=== PATIENT | female | born 1990 | race Caucasian/White ===

== ENCOUNTER 2021-01-29 13:52 | Outpatient (CLI) | payer MEDICAID, SELFPAY ==
[2021-01-29 14:09] VITALS: BMI 25.2
[2021-01-29 14:15] VITALS: RESP 18; TEMP 36.5
[2021-01-29 14:27] VITALS: BP 136/69; PULSE 63
[2021-01-29 14:58] VITALS: BP 126/75; PULSE 70
[2021-01-29 15:12] LABS: Urine Appearance Clear (CLEAR); Urine Color Straw (Yellow); pH Urine 7 (5-7)
[2021-01-29 15:13] LABS: Bilirubin Urine Neg (Negative); Blood Urine Neg (Negative); Glucose Urine UA Norm (Normal); Ketones Urine Negative (Negative); Leukocyte Esterase Urine Negative (Negative); Nitrate Urine Negative (Negative); Protein Urine Neg (Negative); Urobilinogen Urine Norm (Negative)
[2021-01-29 15:21] LABS: Amphetamines Screen Urine Negative (Negative); Barbiturates Screen Urine Negative (Negative); Benzodiazepines Screen Urine Positive (Negative); Cocaine Screen Urine Negative (Negative); Opiate Screen Urine Negative (Negative); PCP Screen Urine Negative (Negative); THC Screen Urine Positive (Negative)
[2021-01-29 15:27] VITALS: BP 127/74; PULSE 54
[2021-01-29 15:27] LABS: Add Urine Culture? No; Bacteria Urine 1+ /hpf; Squamous Epithelial Cell Urine 0-4 /hpf (0-5); WBC Urine 0-4 /hpf (0-5)
[2021-01-29 15:59] VITALS: BP 127/74; PULSE 54; RESP 18; TEMP 36.6
== END 2021-01-29 15:55 | disposition home or self-care (01) ==
LOC: OPOB 14:01 → OBGYN 14:02
PROVIDERS: Visit Provider Family Medicine
DX: O26.899 Other specified pregnancy related conditions, unspecified trimester (principal); Z3A.00 Weeks of gestation of pregnancy not specified; R10.9 Unspecified abdominal pain
CPT/HCPCS: 59025; 80306; 81001; 99211

== ENCOUNTER 2021-02-06 00:20 | Inpatient (IN) | payer MEDICAID, SELFPAY ==
[2021-02-05] VITALS (7 sets, daily range): BP systolic 123–158; BP diastolic 68–88; PULSE 60–80; TEMP 36.6–37; BMI 25.9
--- NOTE | 2021-02-05 20:18 | PC.NURSE ---
Spoke with patient, she verbally stated that we could provide her mother with information about her care
--- NOTE | 2021-02-05 22:32 | PM.OPHPUD ---
Labor & Delivery H&P Update Date of Procedure: February 05, 2021 Date H&P Performed: 02/01/21 H&P update information: I have reviewed H&P completed within last 30 days, I have examined patient prior to procedure and Changes to prior documentation as noted here (Patient not having much pain but is bryon regularly and making cervical change.) Changes to previous documentation: Cervix is approximately 6 cm dilated. Admission Diagnosis: Preop diagnosis: Term in spontaneous labor. Planned procedure: Plan spontaneous vaginal delivery.
[2021-02-05] MEDS: hyDROXYzine 25 mg Capsule 50 MG PO (23:00)
[2021-02-05 23:19] LABS: Basophils % 0.2 %; Eosinophils # 0.1 10^3/uL (0.0-0.8); Eosinophils % 0.8 %; Hematocrit 34.2 % (37.0-47.0); Hemoglobin 10.6 g/dL (11.5-15.3); Lymphocytes # 2.4 10^3/uL (0.8-4.8); Lymphocytes % 27.4 %; Mean Corpuscular Hemoglobin 26.1 pg (28.0-34.0); Mean Corpuscular Volume 84.2 fL (81-99); Mean Platelet Volume 11.1 fL (7.4-10.4); Monocytes # 0.7 10^3/uL (0.2-0.9); Monocytes % 7.9 %; Neutrophils # 5.51 10^3/uL (1.8-7.7); Neutrophils % 63.1 %; Nucleated Red Blood Cells % 0 %; Platelet Count 228 10^3/cmm (130-400); Red Blood Count 4.06 10^6/uL (4.1-5.3); Red Cell Distribution Width 14.8 % (12.1-15.1); White Blood Count 8.7 10^3/uL (4.0-10.0)
[2021-02-05 23:26] LABS: Amphetamines Screen Urine Negative (Negative); Barbiturates Screen Urine Negative (Negative); Benzodiazepines Screen Urine Positive (Negative); Cocaine Screen Urine Negative (Negative); Opiate Screen Urine Negative (Negative); PCP Screen Urine Negative (Negative); THC Screen Urine Negative (Negative)
[2021-02-06] VITALS (42 sets, daily range): BP systolic 109–161; BP diastolic 54–96; PULSE 56–81; RESP 16; TEMP 35.8–37
[2021-02-06] MEDS: dextrose 5%-lactated ringers 1,000 ML 125 ML IV (01:40)
[2021-02-06] MEDS: oxytocin 30 UNIT/500 ML BAG 600 UNIT IV (03:19)
--- NOTE | 2021-02-06 03:37 | PM.DELIVERY ---
Delivery Note: Date of delivery: February 06, 2021 this 30-year-old 2 now para 2 female at 39 weeks and 6 days gestation arrived to [facility] OB department suspecting that she may have had ruptured membranes. She was evaluated and found that she was not leaking amniotic fluid but she was 4 cm dilated and bryon regularly. At that time, she was feeling no pain but she was evaluated for another hour or so and was making cervical change and therefore was admitted to the hospital. She continued to make cervical change to complete cervical dilatation. She did have spontaneous rupture membranes with clear fluid obtained around 1 AM. She dilated to complete cervical dilatation with no anesthesia and was a very good pressure and delivered the infant around oh 3:13 AM at 40 weeks gestation. The infant was occiput posterior at delivery. There was no nuchal cord. She delivered the baby rapidly with suction of the from mouth and nose immediately after delivery using a bulb syringe. The infant cried lustily at and was placed on mother's abdomen. After approximately 1 minute the umbilical cord was cut by the infant's grandmother. The umbilical cord had 3 blood vessels. The placenta delivered spontaneously at 03 19. Evaluation of the vaginal vault and perineum demonstrated no lacerations and required no sutures. Fundal massage and sweep of the vaginal vault removed some small clots but otherwise there is good hemostasis. The had Apgars of 9 and 9 at 1 and 5 minutes respectively and weighed 6 pounds 11 ounces. Estimated blood loss is approximately 128 mL. There were no complications. Pre-Delivery Course: This patient was followed by this physician throughout her course. There were no major problems or concerns throughout her . Her maternal blood type was A+ with antibody screen negative. Hepatitis B, hepatitis C, RPR and HIV were negative. Rubella is nonimmune and group B strep was negative. This patient was treated with alprazolam off and on throughout her from her primary care physician. A discussion was made with the patient regarding her need to greatly limit the amount of alprazolam but she has severe anxiety disorder and required the alprazolam. The will need to be observed for any withdrawal side effects. Delivery: Spontaneous vaginal delivery. Post-Delivery Status: Patient is doing well will be followed for routine care. She is bottlefeeding therefore I will allow her to have an occasional alprazolam if necessary. A&P Assessment and plan (1) Normal spontaneous vaginal delivery: Patient did well through the labor and delivery process. We will plan routine care. Status: Acute (2) Anxiety: Alprazolam as needed for anxiety but will make sure she limits them. Status: Acute Coding Level of Care Code Acute Certified Orthotist Practice Manager for [facility] Fwd Diagnoses Normal spontaneous vaginal delivery O80 Anxiety F41.9
[2021-02-06] MEDS: ketorolac 30 mg/mL INJ IVP (03:51)
--- NOTE | 2021-02-06 05:21 | PC.NURSE ---
Patient mother as support person.
--- NOTE | 2021-02-06 05:50 | PC.NURSE ---
EDUCATION Nurse to room for recovery vital signs/fundus assessment. Observed patient asleep with infant in arms. Educated on safety and importance of infant in open crib while mother is sleeping. Patient verbalized understanding. to open crib before nurse left room.
[2021-02-06] MEDS: ibuprofen 800 mg tablet PO ×2 (09:34→14:54)
[2021-02-06] MEDS: prenatal vitamin Capsule 1 CAP PO (09:34)
[2021-02-06] MEDS: docusate sodium 100 mg Capsule PO ×2 (09:34→17:40)
[2021-02-06] MEDS: ALPRAZolam 0.5 mg Tablet 0.25 MG PO (09:42)
[2021-02-06 16:01] LABS: Hematocrit 32.4 % (37.0-47.0); Hemoglobin 10.2 g/dL (11.5-15.3); Mean Corpuscular HGB Conc 31.5 g/dL (30.0-36.0); Mean Corpuscular Hemoglobin 25.9 pg (28.0-34.0); Mean Corpuscular Volume 82.2 fL (81-99); Mean Platelet Volume 11.4 fL (7.4-10.4); Platelet Count 209 10^3/cmm (130-400); Red Blood Count 3.94 10^6/uL (4.1-5.3); Red Cell Distribution Width 14.8 % (12.1-15.1); White Blood Count 10.8 10^3/uL (4.0-10.0)
[2021-02-07 05:34] VITALS: BP 123/55; PULSE 58
--- NOTE | 2021-02-07 08:35 | PM.PN ---
Subjective Subjective: Interval history: Patient is extremely anxious and has begun breast-feeding the infant to help reduce withdrawal side effects. She is worried that baby is not getting enough to eat as baby is spitting a lot of stuff up. She is afebrile and has minimal lochia and no significant clots. Vitals/I&O/Wt Last Vital Signs Temp 98.6 F 02/06/21 15:59 Pulse 58 L 02/07/21 05:34 Resp 16 02/06/21 15:59 BP 123/55 02/07/21 05:34 Weight last 48 hrs Weight 82.1 kg Physical Exam Const: COMMON NORMALS: no acute distress, no limitations, healthy appearing and well nourished GENERAL APPEARANCE: anxious Resp: COMMON NORMALS: normal respiratory effort, No retractions, No use of accessory muscles and clear to auscultation bilaterally AUSCULTATION: clear to auscultation bilaterally Cardio: COMMON NORMALS: regular rate, regular rhythm and No murmurs present (Cardio) RATE: regular rate RHYTHM: regular rhythm GI: COMMON NORMALS: Normal to inspection, nondistended, normoactive bowel sounds present, Soft to palpation and non-tender (Fundus is firm and well below the umbilicus. ) INSPECTION: Yes normal to inspection PALPATION: Yes Soft to palpation Extremity: COMMON NORMALS: no calf tenderness and no pedal edema Neuro: COMMON NORMALS: no focal motor deficits and no sensory deficits noted Psych: ATTITUDE: Yes Guarded attititude/behavior present MOOD & AFFECT: Yes anxious Data : 02/06/21 15:30 A&P Assessment and plan (1) Normal spontaneous vaginal delivery: Patient is doing well from. She has had mild lochia and is tolerating a regular diet. Status: Acute (2) Anxiety: Due to the patient's severe anxiety and infants symptoms of abstinence I feel it would be best for the patient to remain in the hospital 1 more midnight to monitor the patient and her child's interactions. I suspect probably both will be able to be discharged in the morning. Status: Acute Attestations Medical Necessity Statement*: Due to patient's anxiety and it the patient should remain more more midnight in the hospital for breast-feeding and monitoring. Time Spent in Patient Care: 16 - 35 minutes (>than 50% of time spent in counselling and/or direct pt care on unit). Coding Level of Care Code Acute Pharmaceutical Process Engineer for Chg Fwd Diagnoses Normal spontaneous vaginal delivery O80 Anxiety F41.9
[2021-02-07] MEDS: lanolin oint 7 gm 1 APPLIC TOPICAL (09:05)
[2021-02-07] MEDS: prenatal vitamin Capsule 1 CAP PO (09:05)
[2021-02-07] MEDS: docusate sodium 100 mg Capsule PO (09:05)
[2021-02-07] MEDS: benzocaine-menthol 78 gm Canister 1 SPRAY TOPICAL (09:05)
[2021-02-07] MEDS: ibuprofen 800 mg tablet PO ×2 (09:05→14:17)
--- NOTE | 2021-02-07 09:23 | PC.NURSE ---
This nurse entered pt's room and found pt sitting up in chair holding . Pt's mother was in the bathroom at this time. This nurse explained the pt's morning medications to the pt and what they were for. Pt verbalized understanding. Pt's mother came out of the bathroom and began asking this nurse what medications were being given to the pt and what they were for and began writing down what this nurse was saying in a notebook that is at pt's bedside. This nurse repeated what medications the pt was getting and what they were for. After administration of the medications, the pt's mother asked this nurse if the pt was prescribed any Xanax here in the hospital and this nurse stated yes she could receive it 3 times per day. The mother stated to this nurse that it was part of the baby's treatment plan and she needed to make sure the pt would get the medication. This nurse explained the medication is given on an as needed basis not on a schedule. The mother of the pt also stated to this nurse about this being the first time the pt had held the baby and breastfed a baby before and she was worried. This nurse stated to mother of pt about nursing staff being available at all points during pt's stay for assistance with and anything else the pt may need. The pt's mother than began giving the pt many different things including her water, coffee, phone, and other small things while the pt was holding the baby. The pt stated to the mother she could put the things on the bedside table. The mother seemed extremely anxious and busy during this encounter. The mother stated she would be back this evening.
[2021-02-07 11:32] VITALS: TEMP 36.3
[2021-02-07 11:34] VITALS: BP 133/62; PULSE 62
--- NOTE | 2021-02-07 12:25 | PC.NURSE ---
pt pushed call light and stated I want to leave, I can't do it here, I want to be discharged, I will bring my baby back if he has a seizer. I am not even breast-feeding him. I can do this at home. This nurse notified the pt nurse to come to pt room at this time.
--- NOTE | 2021-02-07 13:00 | PC.NURSE ---
This nurse and Rahul Winn RN entered pt's room and this nurse stated to pt that Dr. Holman stated mother could be discharged but baby would have to stay a patient. Mother became very tearful and stated she did not understand. This nurse stated to pt that she could be discharged but room in with the baby but baby had to stay a patient so he could be monitored for signs of withdraw. The mother stated she wanted to be discharged and didn't understand what would be different in her going home and her being here. This nurse stated the baby could be monitored more closely and if baby was to be discharged and was to have a seizure at home, the baby could have negative consequences before they could arrive to the hospital. The mother was still very tearful and said she felt like she was doing everything wrong and she stated the baby wouldn't be going through this if it wasn't for her. This nurse reassured the mother that she was doing fine and it was her choice to breast or bottle feed the baby and she is more than welcome to room in with the baby but she cannot leave the hospital and stay gone because DFS would have to be notified. The mother again became tearful and this nurse reassured pt that if she stayed with the baby DFS would not have to be called. Rahul Winn RN stated to pt that the baby would have to stay until the half life of the medication she was taking would pass through the baby's system. The pt verbalized understanding.
--- NOTE | 2021-02-07 13:06 | PM.OBGYDC ---
Discharge Providers ROTARY ENVELOPE MACHINE OPERATOR Date of Admission: 02/06/21 00:20 Date of Discharge: 02/07/21 Attending Provider at Admission: Emmanuel Holman MD Attending Provider at Discharge: Emmanuel Holman MD Diagnoses at Discharge Discharge Diagnosis (1) Normal spontaneous vaginal delivery: Status: Acute (2) Anxiety: Status: Acute Reason for Visit Reason for Visit: possible ROM Hospital Course Hospital Course Patient has done well physically since delivery. She has mild lochia and minimal clots. She is ambulating well and tolerating a regular diet. Due to her severe anxiety she desires to be discharged to be able to take her own alprazolam instead of relying on the nurses to retrieve it. She plans to continue to room in with the and take part in the care as the infant continues to require close observation due to abstinence symptoms. Information Peripartum Data: Infant Delivery Method: Vaginal Physical Exam Const: COMMON NORMALS: no acute distress GENERAL APPEARANCE: cooperative, comfortable and anxious Resp: COMMON NORMALS: normal respiratory effort, No use of accessory muscles and clear to auscultation bilaterally AUSCULTATION: clear to auscultation bilaterally Cardio: COMMON NORMALS: regular rate, regular rhythm and No murmurs present (Cardio) RATE: regular rate RHYTHM: regular rhythm Extremity: COMMON NORMALS: no calf tenderness and no pedal edema Neuro: COMMON NORMALS: no focal motor deficits and no sensory deficits noted Psych: COMMON NORMALS: mental status grossly normal and cooperative MOOD & AFFECT: Yes anxious Skin: COMMON NORMALS: no rashes or lesions noted GENERAL SKIN EXAM: no rashes or lesions noted Discharge Data Data Completed and Pending: Labs from last 24 hours 02/06/21 15:30 WBC 10.8 H RBC 3.94 L Hgb 10.2 L Hct 32.4 L MCV 82.2 MCH 25.9 L MCHC 31.5 RDW 14.8 Plt Count 209 MPV 11.4 H Vitals: Last Vital Signs Temp 97.3 F L 02/07/21 11:32 Pulse 62 02/07/21 11:34 Resp 16 02/06/21 15:59 BP 133/62 02/07/21 11:34 Discharge Plan Discharge Patient Disposition: Home Condition: Stable Prescriptions: New docusate sodium 100 mg Capsule 100 mg PO BID Qty: 60 RF: 1 ibuprofen 800 mg Tablet 800 mg PO TID Qty: 90 RF: 1 -U 106.5-1 mg Capsule 1 cap PO DAILY Qty: 90 RF: 0 Continued alprazolam [Xanax] 2 mg Tablet 2 mg PO TID PRN (Reason: ANXIETY) RF: 0 folic acid 5 mg Capsule 5 mg PO DAILY RF: 0 Discharge Orders: Discharge Order (Routine); Ordered 02/07/21 Ordered By: Emmanuel Holman Referrals: Emmanuel Holman MD [Physician] - 6 Weeks Discharge Diet: Usual diet Discharge Activity: Resume usual activity Patient Instructions: Opioid Safety Discharge Attestations ROTARY ENVELOPE MACHINE OPERATOR Time Spent in Discharge Care*: less than 30 min Specific Discharge Activities: Specific discharge activities: educating patient, documenting/other paperwork and evaluating patient/reviewing data Status at Discharge: Cognitive status at discharge: cognitively intact, Behavioral status at discharge: cooperative, Functional status at discharge: independent ambulation Overall status at discharge: patient is back to baseline Coding Level of Care Code Acute Patrol Driver for [facility] Fwd Exam Detailed Diagnoses Normal spontaneous vaginal delivery O80 Anxiety F41.9
[2021-02-07 14:19] VITALS: BP 130/78; PULSE 64
--- NOTE | 2021-02-07 14:45 | PC.NURSE ---
Pt refused MMR vaccine.
[2021-02-07 14:46] VITALS: BP 130/78; PULSE 64
--- NOTE | 2021-02-10 07:20 | PC.RESP ---
SMOKING CESSATION INFORMATION SENT TO PATIENT.
== END 2021-02-07 14:46 | disposition home or self-care (01) | DRG 807 ==
LOC: OPOB 00:22 → OBGYN 00:22
PROVIDERS: Admitting Provider Family Medicine; Visit Provider Family Medicine
DX: O99.344 Other mental disorders complicating childbirth (principal); Z37.0 Single live birth; F41.9 Anxiety disorder, unspecified; Z3A.39 39 weeks gestation of pregnancy
CPT/HCPCS: 36415; 59025; 59409; 80306; 83986; 85025; 85027; 99211; J1885

== ENCOUNTER → 2021-09-15 13:25 | Outpatient (BNVA) | payer MEDICAID, SELFPAY | PROVIDERS: Visit Provider Internal Medicine | DX: E05.90 Thyrotoxicosis, unspecified without thyrotoxic crisis or storm (principal); E03.9 Hypothyroidism, unspecified; F17.210 Nicotine dependence, cigarettes, uncomplicated | CPT/HCPCS: 99204 ==

== ENCOUNTER 2021-11-01 18:48 | Emergency (ER) | payer MEDICAID, SELFPAY ==
[2021-11-01] VITALS (7 sets, daily range): BP systolic 134–156; BP diastolic 72–92; PULSE 84–98; RESP 15–18; TEMP 36.2–36.8; O2SAT 94–98; BMI 21.1
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
[2021-11-01] MEDS: HYDROcodone-acetaminophen 5-325 mg Tablet 1 TAB PO (19:55)
[2021-11-01] MEDS: ondansetron 2 mg/ML SDV 2 mL 4 MG IVP (21:48)
--- NOTE | 2021-11-01 22:44 | XRR_ITS ---
PROCEDURE INFORMATION: Exam: XR Left Forearm Exam date and time: 11/01/2021 10:54 PM Age: 31 years old Clinical indication: Pain; Lower or forearm; Left; Additional info: Post splint/reduction attempt TECHNIQUE: Imaging protocol: XR Left forearm. Views: 2 views. COMPARISON: CR (UP EXM, ) 11/01/2021 8:27 PM FINDINGS: Tubes, catheters and devices: Interval splint placement. Bones/joints: Radius and ulna fractures are partially reduced. Fractures remain significantly displaced, however. Decreased angulation deformity noted. Soft tissues: Diffuse soft tissue swelling. XR/XR forearm LT 2V [id number] IMPRESSION: Partially reduced left forearm fractures.
[2021-11-01] MEDS: propofol 10 mg/mL SDV 20 mL IV (22:51)
--- NOTE | 2021-11-02 11:09 | DCPLANNER ---
Addendum entered by Marion Mckeon 11/04/21 14:31: Patient had a follow up appointment scheduled with ortho - patient did attend appointment. Original Note: self storage manager had message to schedule a follow up appointment for patient with ortho. self storage manager sent patients information to the front office staff at ortho. Patients information will be printed and reviewed. Clinic will call patient with appointment information.
== END 2021-11-01 23:48 | disposition home or self-care (01) ==
PROVIDERS: Emergency Provider Emergency Medicine
DX: S52.302A Unspecified fracture of shaft of left radius, initial encounter for closed fracture (principal); S52.202A Unspecified fracture of shaft of left ulna, initial encounter for closed fracture; Y04.2XXA Assault by strike against or bumped into by another person, initial encounter; Z63.0 Problems in relationship with spouse or partner
CPT/HCPCS: 25565; 70450; 70486; 72125; 73090; 96374; 99152; 99284; J2405; J2704; J3490

== ENCOUNTER 2021-11-04 12:44 | Day surgery (SDC) | payer MEDICAID, SELFPAY ==
[2021-11-04] VITALS (10 sets, daily range): BP systolic 103–134; BP diastolic 55–80; PULSE 66–91; RESP 13–18; TEMP 36.6–36.9; O2SAT 95–100; BMI 21.5
--- NOTE | 2021-11-04 | SCC_ITS ---
Procedure done: Open reduction internal fixation left radius and ulnar 11.9 seconds of fluoroscopic guidance, for a cumulative dose of 0.27 mGy, was provided to Dr. Cross by the radiology department. C-arm images of the left forearm were saved for the patient's permanent record. [facility]
--- NOTE | 2021-11-04 | XR_ITS ---
WS: [id number] Left forearm, C-arm fluoroscopy, 11/04/2021 Clinical Data: fracture Comparison: Left forearm, 11/01/2021. Findings: The midshaft fractures of the left radius and ulna are reduced with plate and screws affixed by Dr. Eran hills. XR/XR forearm LT 2V [id number] Impression: Internal fixations of left mid radius and ulnar fractures.
[2021-11-04 13:14] LABS: OR HCG Qualitative Urine Negative (Negative)
--- NOTE | 2021-11-04 13:18 | ANES.PREANE2 ---
Pre-Anesthetic Assessment Height/Weight: Height 1.78 m Weight 68.039 kg Temp Pulse Resp BP Pulse Ox 97.9 F 91 16 134/74 99 11/04/21 13:02 11/04/21 13:02 11/04/21 13:02 11/04/21 13:02 11/04/21 13:02 Preop Diagnosis: Fracture Left radius and ulnar shaft Operation Date: 11/04/21 14:30 Proposed Procedures p ORIF left both bone forearm fracture 72510/S52.40(Left) - Brock Cross MD Familial anesthetic complications: None Was Beta Eli taken within 24 hours: N/A Was Clonidine taken within 24 hours: N/A Last intake: Intake Last Liquid Date 11/04/21 Last Liquid Time 11:00 Last Solid Date 11/03/21 Last Solid Time 20:00 Social Alcohol (ocassional) and Tobacco Exam alert, oriented x 3, clear to auscultation bilaterally and regular rate & rhythm Airway Mallampati: Class I Dentition: chipped Pulmonary None reported CV/HEM None reported None reported Hepatic None reported GI None reported Metabolic None reported Musc/skel None reported Neuropsych None reported Anesthetic Plan ASA status: 1 Anesthesia: General and Regional (specify below) Risk of > 500 ml blood loss (7ml/kg in children): No Medications/Allergies Home Medications Medication Instructions Recorded Confirmed Last Taken Type alprazolam 2 mg tablet (Xanax) 2 mg PO TID PRN 01/29/21 11/04/21 11/04/21 History multivitamin no.51-ferrous 1 cap PO DAILY #90 cap 02/07/21 11/04/21 11/03/21 Rx fumarate 106.5 mg-folic acid 1 mg capsule (-U) methimazole 5 mg tablet 5 mg PO DAILY 09/15/21 11/04/21 11/04/21 History oxycodone 5 mg tablet 5 mg PO Q4H PRN #20 tab 11/01/21 11/04/21 11/04/21 Rx Allergies Allergy/AdvReac Type Severity Reaction Status Date / Time erythromycin base Allergy ALGY-Hives Verified 11/04/21 12:57 PFSH Anesthesia Medical History Anxiety Hyperthyroidism Surgical History No pertinent past surgical history Family History Father Diabetes Grandmother Hypertension maternal Stroke Maternal Mother Hypertension Social History Smoking and tobacco status: current some day smoker cigarettes Alcohol intake: never Data Anesthesia Cardiac Studies: No Data to Display
[2021-11-04] MEDS: sodium chloride 0.9% 1,000 ML 30 ML IV (13:28)
[2021-11-04] MEDS: midazolam 1 mg/mL INJ 2 mL 2 MG IVP (13:38)
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
--- NOTE | 2021-11-04 13:53 | P.ANESASSM_ITS ---
Pre-Anesthetic Assessment Height/Weight: Height 1.78 m Weight 68.039 kg Temp Pulse Resp BP Pulse Ox 97.9 F 91 16 134/74 99 11/04/21 13:02 11/04/21 13:02 11/04/21 13:02 11/04/21 13:02 11/04/21 13:02 Preop Diagnosis: Fracture Left radius and ulnar shaft Operation Date: 11/04/21 14:30 Proposed Procedures p ORIF left both bone forearm fracture 75283/S52.40(Left) - Brock Cross MD Familial anesthetic complications: none Was Beta Eli taken within 24 hours: N/A Was Clonidine taken within 24 hours: N/A Last intake: Intake Last Liquid Date 11/04/21 Last Liquid Time 11:00 Last Solid Date 11/03/21 Last Solid Time 20:00 Social Tobacco and No alcohol Exam alert, oriented x 3, clear to auscultation bilaterally and regular rate & rhythm Airway Mallampati: Class II Dentition: full Pulmonary None reported CV/HEM None reported None reported Hepatic None reported GI None reported Metabolic Thyroid Disease [facility] [place] None reported Neuropsych Anxiety Anesthetic Plan ASA status: 2 Anesthesia: General and Regional (specify below) Risk of > 500 ml blood loss (7ml/kg in children): No Medications/Allergies Home Medications Medication Instructions Recorded Confirmed Last Taken Type alprazolam 2 mg tablet (Xanax) 2 mg PO TID PRN 01/29/21 11/04/21 11/04/21 History multivitamin no.51-ferrous 1 cap PO DAILY #90 cap 02/07/21 11/04/21 11/03/21 Rx fumarate 106.5 mg-folic acid 1 mg capsule (-U) methimazole 5 mg tablet 5 mg PO DAILY 09/15/21 11/04/21 11/04/21 History oxycodone 5 mg tablet 5 mg PO Q4H PRN #20 tab 11/01/21 11/04/21 11/04/21 Rx oxycodone 5 mg tablet 5 mg PO Q4H PRN #40 tab 11/04/21 Unknown Rx Allergies Allergy/AdvReac Type Severity Reaction Status Date / Time erythromycin base Allergy ALGY-Hives Verified 11/04/21 12:57 Current Medications Generic Name Dose Route Start Last Admin Trade Name Freq PRN Reason Stop Dose Admin Sodium Chloride 1,000 mls @ 30 mls/hr 11/04/21 13:00 11/04/21 13:28 Sodium Chloride 0.9% IV 11/05/21 12:59 30 mls/hr .Q24H DIRK Administration PFSH Anesthesia Medical History Anxiety Hyperthyroidism Surgical History No pertinent past surgical history Family History Father Diabetes Grandmother Hypertension maternal Stroke Maternal Mother Hypertension Social History Smoking and tobacco status: current some day smoker cigarettes Alcohol intake: never Data Anesthesia Cardiac Studies: No Data to Display
--- NOTE | 2021-11-04 13:54 | ANES.PROC ---
Anesthesia Procedures Procedure/Date: 11/04/21 Nerve Block ^: Nerve Block 1: Main Anesthesia: general anesthesia Time Out Performed: Yes Consent: requested by attending/covering physician, from patient, risks and benefits reviewed and patient agrees to proceed Nerve block location: axillary (L) Anesthesia monitors applied: pulse oximetry, EKG, BP cuff and oxygen Nerve block position: supine Anesthetic Used: ropivicaine 0.5% (30 ml) and with decadron (4 mg) Ultrasound used to: recognize landmarks Nerve Stimulator Used?: No Interscalene/Femoral BLK: 2 stimuplex 22 g needle used for position and inplane approach, visualize local anesthetic spread and no vascular puncture identified Injection: neg aspiration of heme Patient Tolerated Procedure: well and no complications Complications: none
--- NOTE | 2021-11-04 15:07 | PM.OP ---
Operative Report Date of procedure: November 04, 2021 Pre-op diagnosis: Preop Diagnosis Fracture Left radius and ulnar shaft Procedure done: Open reduction internal fixation left radius and ulnar Implants: Gentry Variax compression plates x2 and nonlocking screws x14 Pathology: none sent Surgeon: Brock Cross Anesthesia: General Estimated blood loss (mL): 10 Tourniquet time (min): 32 Complications: None Findings: The patient had oblique midshaft displaced fractures of the radius and ulna Condition: stable Disposition: PACU Procedure: Ms. daniels was taken to the operating room and given a general anesthesia. She was given 2 g of Ancef. She is prepped and draped in the supine position with a tourniquet on the left arm. A timeout was performed. The tourniquet was inflated to 250 mmHg. Initially of volar radial incision was made over the radial shaft fracture. Dissection was carried down between the brachial radialis and radial wrist flexors. There is extensive periosteal stripping about both ends of the fracture and subperiosteal elevated elevation of left tissues was minimally required on the most proximal and distal exposure of the radial shaft. 2 lobster-claw clamps were used to bring the radius out the length to reduce the fragments. They were provisionally held with a 2 mm K wire. A 7 hole plate was slightly contoured was placed over the volar ulnar aspect of the bone. It was fixed with 3 proximal and 3 distal screws and a single oblique screw through the central hole passing through both fracture fragments. Next an incision was made over the ulnar shaft of the level of the fracture and dissection carried down through the ulnar flexors and ulnar extensors down to the radial shaft. Again a [place] was used to immobilize a soft tissues over the ends of the fractured ulna and with a reduction clamp they were brought out to length. A single interfragmentary compression screw was placed maintain initial reduction. A 7 hole plate was applied with 3 proximal and 3 distal nonlocking screws. Intraoperative images were obtained. The ulnar interfragmentary screw was few millimeters long but was buried in the plate and it was not felt to be critical for removal. Wounds were irrigated with saline. Deep tissues were closed with 2-0 and 3-0 Vicryl. The skin was closed with skin elliot. Xeroflo gauze 4 x 4's compressive web roll and [place] wrap were applied. Patient was extubated taken recovery room in stable condition.
--- NOTE | 2021-11-04 15:17 | SUR.PHASEI ---
PT TO PACU 5 WARM BLANKETS TO PT X 3, PT SLEEPS WITH GOOD RESP EFFORT, PT DOES NOT AWAKE TO VOICE, VSS MONITOR SR NO ECTOPY NOTED. SATS 100% ON 6L MASK, LT LOWER ARM DRESSING D/I WITH SLING IN PLACE , LT DISTAL FINGERS PINK AND WARM WITH CAP REFILL LESS THAN 3 SECONDS, IV TO RT WRIST WITH NS 900ML UP AT KVO RATE PER GRAVITY, PT ID BAND TO RT WRIST, PT ID'D WITH 2 IDENTIFERS. HOB AT 30 DEGREES.
--- NOTE | 2021-11-04 15:30 | SUR.PHASEI ---
PT AWAKES TO VOICE, REMAINS VERY SLEEPY, BUT RESPONDS TO NAME, VSS , NO OBVIOUS S/S OF PAIN , PT ON RA TRIAL.
== END 2021-11-04 16:15 | disposition home or self-care (01) ==
PROVIDERS: Anesthesiology; Visit Provider Orthopaedic Surgery
PROC: (CPT 25575; principal; 2021-11-04 14:30)
DX: S52.92XA Unspecified fracture of left forearm, initial encounter for closed fracture (principal); S52.202A Unspecified fracture of shaft of left ulna, initial encounter for closed fracture; X58.XXXA Exposure to other specified factors, initial encounter; F41.9 Anxiety disorder, unspecified; E03.9 Hypothyroidism, unspecified; F17.210 Nicotine dependence, cigarettes, uncomplicated
CPT/HCPCS: 25575; 64417; 73090; 76000; 76942; 81025; 84703; C1713; J0690; J1100; J2250; J2405; J2704; J2795; J3010; J7030

== ENCOUNTER → 2021-11-17 10:46 | Outpatient (BNVA) | payer MEDICAID, SELFPAY | PROVIDERS: Visit Provider Nurse Practitioner Family | DX: Z98.890 Other specified postprocedural states (principal); S52.209A Unspecified fracture of shaft of unspecified ulna, initial encounter for closed fracture; S52.309A Unspecified fracture of shaft of unspecified radius, initial encounter for closed fracture; X58.XXXA Exposure to other specified factors, initial encounter | CPT/HCPCS: 73090 ==

== ENCOUNTER 2021-11-17 11:44 | Outpatient (CLI) | payer MEDICAID, SELFPAY | END 2021-11-17 11:45 | disposition home or self-care (01) | LOC: SPT 11:45 | PROVIDERS: Visit Provider Nurse Practitioner Family | DX: Z46.89 Encounter for fitting and adjustment of other specified devices (principal); S52.322D Displaced transverse fracture of shaft of left radius, subsequent encounter for closed fracture with routine healing; S52.222D Displaced transverse fracture of shaft of left ulna, subsequent encounter for closed fracture with routine healing; X58.XXXD Exposure to other specified factors, subsequent encounter; Z98.890 Other specified postprocedural states | CPT/HCPCS: 97760; L3908 ==

== ENCOUNTER → 2022-02-15 13:27 | Outpatient (BNVA) | payer OTHER, SELFPAY | PROVIDERS: Visit Provider Psychiatry & Neurology Psychiatry | DX: F41.9 Anxiety disorder, unspecified (principal) | CPT/HCPCS: 80061; 83036 ==

== ENCOUNTER → 2022-06-21 10:58 | Outpatient (BNVA) | payer MEDICAID, SELFPAY ==
[2022-02-17 16:33] VITALS: BP 119/69; BMI 20.7
== END ==
PROVIDERS: Visit Provider Family Medicine
DX: E05.90 Thyrotoxicosis, unspecified without thyrotoxic crisis or storm (principal); F41.0 Panic disorder [episodic paroxysmal anxiety]; F32.1 Major depressive disorder, single episode, moderate; J30.9 Allergic rhinitis, unspecified; F41.9 Anxiety disorder, unspecified; F41.1 Generalized anxiety disorder; Z86.39 Personal history of other endocrine, nutritional and metabolic disease
CPT/HCPCS: 80053; 80061; 83516; 84439; 84443; 85025; 86376; 86800

== ENCOUNTER → 2022-08-17 11:42 | Outpatient (BNVA) | payer MEDICAID, SELFPAY ==
[2022-02-17 16:33] VITALS: BP 119/69; BMI 20.7
== END ==
PROVIDERS: PCP Family Medicine; Referring Provider Family Medicine; Visit Provider Internal Medicine
DX: E05.90 Thyrotoxicosis, unspecified without thyrotoxic crisis or storm (principal); R53.83 Other fatigue; R63.5 Abnormal weight gain
CPT/HCPCS: 36415; 84439; 84443; 84480

== ENCOUNTER 2022-09-14 11:15 | Outpatient (CLI) | payer MEDICAID, SELFPAY ==
[2022-02-17 16:33] VITALS: BP 119/69; BMI 20.7
[2022-09-14 13:31] LABS: Free T4 Free Thyroxine 0.95 ng/dL (0.82-1.77)
== END 2022-09-14 11:16 | disposition home or self-care (01) ==
LOC: ONCMED 11:24 → LAB 11:27
PROVIDERS: PCP Family Medicine; Visit Provider Internal Medicine
DX: E05.90 Thyrotoxicosis, unspecified without thyrotoxic crisis or storm (principal)
CPT/HCPCS: 84439

== ENCOUNTER → 2022-10-20 11:40 | Outpatient (BNVA) | payer MEDICAID, SELFPAY ==
[2022-02-17 16:33] VITALS: BP 119/69; BMI 20.7
== END ==
PROVIDERS: PCP Family Medicine; Visit Provider Family Medicine
DX: F10.20 Alcohol dependence, uncomplicated (principal)
CPT/HCPCS: 80053; 80061; 82607; 83516; 84439; 84443; 85025; 86376; 86800

== ENCOUNTER 2022-10-26 10:16 | Outpatient (CLI) | payer MEDICAID, SELFPAY ==
[2022-02-17 16:33] VITALS: BP 119/69; BMI 20.7
--- NOTE | 2022-10-26 10:15 | US_ITS ---
WS: [id number] ULTRASOUND THYROID TECHNIQUE: Ultrasound of the thyroid. CLINICAL INFORMATION: hyperthyroidism COMPARISON: 2016 FINDINGS: Thyroid: Right and left thyroid lobes are normal in size and echotexture. No suspicious thyroid nodul es are present. Right thyroid lobe: 4.4 cm x 1.5 cm x 1.6 cm Left thyroid lobe: 4.0 cm x 1.6 cm x 1.2 cm. Isthmus: 0.2 mm. Cervical lymphadenopathy: None. US/US thyroid [id number] IMPRESSION: Normal thyroid ultrasound examination.
== END 2022-10-26 10:17 | disposition home or self-care (01) ==
LOC: RAD 10:18
PROVIDERS: PCP Family Medicine; Visit Provider Internal Medicine
DX: E05.90 Thyrotoxicosis, unspecified without thyrotoxic crisis or storm (principal)
CPT/HCPCS: 76536

== ENCOUNTER → 2022-12-13 09:50 | Outpatient (BNVA) | payer MEDICAID, SELFPAY ==
[2022-02-17 16:33] VITALS: BP 119/69; BMI 20.7
== END ==
PROVIDERS: PCP Family Medicine; Visit Provider Nurse Practitioner Women's Health
DX: Z12.4 Encounter for screening for malignant neoplasm of cervix (principal)
CPT/HCPCS: 81025; 87624

== ENCOUNTER 2023-01-06 08:59 | Outpatient (CLI) | payer MEDICAID, SELFPAY ==
[2022-02-17 16:33] VITALS: BP 119/69; BMI 20.7
[2023-01-06 10:31] LABS: Estmated Average Glucose 108; Hemoglobin A1C 5.4 % (4.0-6.0)
[2023-01-06 10:39] LABS: Alanine Aminotransferase 20 U/L (0-33); Albumin Level 4.7 g/dL (3.5-5.2); Alkaline Phosphatase 77 U/L (35-105); Anion Gap 16.8 (5-19); Aspartate Amino Transferase 17 U/L (0-32); Blood Urea Nitrogen 6 mg/dL (6-20); Calcium 9.7 mg/dL (8.5-10.5); Carbon Dioxide 25 mmol/L (22-29); Chloride 99 mmol/L (98-107); Chol HDL Ratio 2.38 mg/dL (0.0-4.40); Cholesterol 164 mg/dL (0-200); Free T4 Free Thyroxine 1.07 ng/dL (0.82-1.77); Globulin 3.1 g/dL (1.3-4.6); Glucose 94 mg/dL (65-115); HDL Cholesterol 69 mg/dL (60-100); LDL Cholesterol Calculated 72 mg/dL (50-129); LDL HDL Ratio 1.04 RATIO (0.00-3.22); Osmolality Calculated 281 mOsm/kg (285-295); Potassium 3.8 mmol/L (3.5-5.1); Sodium 137 mmol/L (136-145); Thyroid Stimulating Hormone 0.73 uIU/mL (0.27-4.20); Total Bilirubin 0.2 mg/dL (0.15-1.2); Total Protein 7.8 g/dL (6.6-8.7); Triglycerides 115 mg/dL (0-150)
== END 2023-01-06 09:00 | disposition home or self-care (01) ==
LOC: LAB 09:02
PROVIDERS: PCP Family Medicine; Visit Provider Internal Medicine
DX: Z09 Encounter for follow-up examination after completed treatment for conditions other than malignant neoplasm (principal); E05.90 Thyrotoxicosis, unspecified without thyrotoxic crisis or storm; R53.83 Other fatigue; R63.5 Abnormal weight gain
CPT/HCPCS: 36415; 80053; 80061; 83036; 84439; 84443

== ENCOUNTER → 2023-03-17 11:27 | Outpatient (BNVA) | payer MEDICAID, SELFPAY ==
[2022-02-17 16:33] VITALS: BP 119/69; BMI 20.7
== END ==
PROVIDERS: PCP Family Medicine; Visit Provider Internal Medicine
DX: E05.90 Thyrotoxicosis, unspecified without thyrotoxic crisis or storm (principal); R53.83 Other fatigue; R63.5 Abnormal weight gain
CPT/HCPCS: 36415; 84439; 84443; 84480

== ENCOUNTER → 2023-03-27 15:35 | Outpatient (BNVA) | payer MEDICAID, SELFPAY ==
[2022-02-17 16:33] VITALS: BP 119/69; BMI 20.7
== END ==
PROVIDERS: PCP Family Medicine; Visit Provider Podiatrist Foot & Ankle Surgery
DX: M76.72 Peroneal tendinitis, left leg; M25.572 Pain in left ankle and joints of left foot
CPT/HCPCS: 73610; 73630

== ENCOUNTER 2023-09-13 19:06 | Emergency (ER) | payer MEDICAID, SELFPAY ==
[2022-02-17 16:33] VITALS: BP 119/69; BMI 20.7
[2023-09-13 19:22] VITALS: BP 116/74; PULSE 88; RESP 16; TEMP 36.6; O2SAT 94
--- NOTE | 2023-09-13 19:35 | XRR_ITS ---
PROCEDURE INFORMATION: Exam: XR Right Hand Exam date and time: 09/13/2023 7:42 PM Age: 33 years old Clinical indication: Injury or trauma; Other: Dog bite; Other: [place]; Additional info: Dog bite little finger (5th digit) TECHNIQUE: Imaging protocol: Radiologic exam of the right hand. Views: 3 or more views. COMPARISON: No relevant prior studies available. FINDINGS: Bones/joints: Normal. Soft tissues: Normal. XR/XR hand RT min 3V* [id number] IMPRESSION: No acute findings.
--- NOTE | 2023-09-13 19:35 | W.ED.ANIMALB ---
HPI - Animal Bite General: Chief Complaint: Animal Bite Stated Complaint: dog bite, right hand swelling Time Seen by Provider: 09/13/23 19:34 History of Present Illness: 33-year-old female comes in today with injury to the little finger of the right hand. Injury is 2 days old. Patient reports that she was feeding her mom's dog 2 days ago when it bit Her hand. Patient has some abrasions to the dorsal hand and a healing laceration to the dorsal little finger proximal phalanx. Patient reports her tetanus is up-to-date. Patient does want postexposure prophylaxis treatment for rabies due to the dog not being up-to-date on immunizations. Patient denies any fever or chills. Bruising and redness is noted to the hand. Review of Systems General: Reports: 10 or more systems reviewed and unremarkable except in HPI and below Musc: Reports: extremity pain PFS ED PFSH: Medical History Alcohol use disorder, moderate, dependence Allergic rhinitis History of arm fracture had surgery to fix it Depression Generalized anxiety disorder Psychiatric care Anxiety Hyperthyroidism Surgical History No pertinent past surgical history Family History Father Diabetes Grandmother Hypertension maternal Stroke Maternal Mother Hypertension Denies family history of CAD (coronary artery disease) Clotting disorder Dementia Hyperlipidemia Psychiatric illness Chronic kidney disease (CKD) Anesthesia complication Bleeding disorder Lung disease Cancer Social History Smoking and tobacco/nicotine status: current some day tobacco/nicotine user e-cigarettes E-Cigarette Details: vaporizer device Quit status (tobacco/nicotine): has quit using Second hand smoke exposure: No Alcohol intake: former Former alcohol use details: binge drinking, quit 2020 Substance/Drug Use: never Adopted: No Caregiver/support person: No Lives independently: Yes Household members: none Housing: Apartment Marital status: Single Number of children: 2 Highest education level completed: Some College, No Degree service: No 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 Current occupational exposures/hazards: Yes Pets and animals: No Leisure activites: other Leisure activities details: spending time with kids, river and board games Sexually active: No Do you think of yourself as: Straight/Heterosexual Current gender identity: Female Eduarda/Restorationism: Jew Special eduarda needs: No Agree to transfusion: Yes Female Reproductive History: Para: 2 Physical Exam Const: COMMON NORMALS: alert HENMT: COMMON NORMALS: normocephalic HEAD & SCALP: normocephalic Neck/C-Spine: COMMON NORMALS: full ROM Resp: COMMON NORMALS: normal respiratory effort and clear to auscultation bilaterally AUSCULTATION: clear to auscultation bilaterally Cardio: COMMON NORMALS: regular rate and regular rhythm RATE: regular rate RHYTHM: regular rhythm GI: COMMON NORMALS: Normal to inspection, nondistended, normoactive bowel sounds present Back/Pelvis: COMMON NORMALS: thoracic and lumbar spine normal to inspection Extremity: LEFT UPPER EXTREMITY: Yes hand & digits (Mild redness and bruising noted to the dorsal right) Neuro: SENSORIUM/ORIENTATION: Yes alert Skin: TRAUMA: abrasion (Superficial right hand) and laceration (Proximal dorsal little finger 1 cm healing) Course Vital Signs: Vital signs: Vital Signs Temperature 97.9 F 09/13/23 19:22 Pulse Rate 88 09/13/23 19:22 Respiratory Rate 16 09/13/23 19:22 Blood Pressure 116/74 09/13/23 19:22 Pulse Oximetry 94 09/13/23 19:22 Oxygen Delivery Me thod Room Air 09/13/23 19:22 MDM - Animal Bite Medical Decision Making 33-year-old female comes in today for injury to the dorsal finger on the right hand. Patient reported being bit by her mother's dog 2 days ago. Mother reported that the dog's immunizations are not up-to-date and patient is wanting rabies exposure prophylaxis treatment and antibiotics. Differential diagnosis includes foreign body, contusion, wound infection, tenosynovitis, bone fracture. Patient minimal swelling and redness and has good range of motion of the hand without eliciting pain. X-ray of the hand was unremarkable. Wound is scabbed over. Will go ahead and treat with Augmentin for possible wound infection. Patient was given her immunoglobulin and first of the rabies series. Patient will continue rabies vaccine series on days 3, 7, and 14. Patient reported understanding. Lab Data Radiology Impressions Hand X-Ray 09/13/23 19:35 IMPRESSION: No acute findings. All radiology interpretation(s) finalized by discharge Discharge Plan Discharge Patient Disposition: Home Clinical Impression: Dog bite Qualifiers: Encounter type: initial encounter Qualified Code(s): W54.0XXA - Bitten by dog, initial encounter Condition: Stable Prescriptions: New amoxicillin-pot clavulanate 875-125 mg tablet 1 tab PO BID Qty: 20 0RF No Action Mirena 21 mcg/24 hours (8 yrs) 52 mg intrauterine device 1 device intrauterine ONCE Qty: 1 0RF povidone-iodine [Betadine Swabsticks] 10 % swab 1 applic topical ONCE Qty: 1 0RF alprazolam [Xanax] 2 mg tablet 2 mg PO TID PRN (Reason: anxiety) 30 Days Qty: 75 0RF Rx Instructions: Take 1 tab BID and 1/2 tab at noon, total of 2 1/2 tabs daily methylprednisolone [Medrol (Vamsi)] 4 mg tablets,dose pack See Rx Instructions PO PER PKG DIR Qty: 21 0RF Rx Instructions: PO PER PKG DIR meloxicam 15 mg tablet See Rx Instructions .ROUTE .COMPLEX Qty: 30 0RF Dose Instruction: TAKE 1 TABLET BY MOUTH EVERY DAY FOR 30 DAYS Rx Instructions: TAKE 1 TABLET BY MOUTH EVERY DAY FOR 30 DAYS fluticasone propionate 50 mcg/actuation spray,suspension See Rx Instructions .ROUTE .COMPLEX Qty: 16 1RF Dose Instruction: SPRAY 2 SPRAYS INTO EACH NOSTRIL DAILY Rx Instructions: SPRAY 2 SPRAYS INTO EACH NOSTRIL DAILY Discharge Orders: Discharge ED (Routine); Ordered 09/13/23 Ordered By: Aamir Bernstein Referrals: Jamari Ruiz MD [Primary Care Provider] - Discharge Diet: Usual diet Discharge Activity: Increase activity as tolerated Patient Instructions: Animal Bite (ED) Activity Restrictions/Additional Instructions: Take antibiotics as directed. Drink plenty of water and fluids with antibiotics. Follow-up with primary care for further instructions. Return to ER for new concerns. You will need to return on days 3, 7, and 14 to complete the rabies vaccine series. Coding Level of Care Code ED Superintendent Maintenance for Shahnaz Mitchell
[2023-09-13] MEDS: amoxicillin-clav 875-125 mg Tablet 1 TAB PO (20:18)
[2023-09-13] MEDS: rabies vaccine 2.5 unit SDV IM (20:18)
[2023-09-13] MEDS: rabies IG 300 unit/mL SDV 1 mL 1500 UNIT INFILTRATI (20:24)
== END 2023-09-13 20:53 | disposition home or self-care (01) ==
PROVIDERS: Emergency Provider Nurse Practitioner Family; PCP Family Medicine
DX: S61.256A Open bite of right little finger without damage to nail, initial encounter (principal); W54.0XXA Bitten by dog, initial encounter; F17.290 Nicotine dependence, other tobacco product, uncomplicated; Z20.3 Contact with and (suspected) exposure to rabies; Z29.14 Encounter for prophylactic rabies immune globulin; Z23 Encounter for immunization
CPT/HCPCS: 73130; 90375; 90471; 90675; 99283

== ENCOUNTER 2024-05-21 14:56 | Emergency (ER) | payer MEDICAID, SELFPAY ==
[2022-02-17 16:33] VITALS: BP 119/69; BMI 20.7
[2024-05-21 15:01] VITALS: BP 113/80; PULSE 78; RESP 18; TEMP 36.7; O2SAT 99
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
[2024-05-21 16:07] LABS: Basophils % 0.3 %; Eosinophils # 0.1 10^3/uL (0.0-0.8); Eosinophils % 0.6 %; Hematocrit 39.5 % (36-47); Lymphocytes # 2.2 10^3/uL (0.8-4.8); Lymphocytes % 23.2 %; Mean Corpuscular HGB Conc 32.9 g/dL (30-55); Mean Corpuscular Hemoglobin 29.3 pg (27-33); Mean Platelet Volume 9.3 fL (7.4-10.4); Monocytes # 0.5 10^3/uL (0.2-0.9); Monocytes % 5.6 %; Neutrophils # 6.67 10^3/uL (1.8-7.7); Nucleated Red Blood Cells % 0 %; Platelet Count 287 10^3/cmm (157-399); Red Blood Count 4.44 10^6/uL (3.85-5.65); White Blood Count 9.53 10^3/uL (3.29-11.43)
[2024-05-21 16:28] LABS: Alanine Aminotransferase 18 U/L (0-33); Albumin Level 4.6 g/dL (3.5-5.2); Alcohol Level 185 mg/dL (0-10); Alkaline Phosphatase 81 U/L (35-105); Anion Gap 14.7 (5-19); Aspartate Amino Transferase 23 U/L (0-32); Blood Urea Nitrogen 12 mg/dL (6-20); Calcium 8.3 mg/dL (8.5-10.5); Carbon Dioxide 24 mmol/L (22-29); Chloride 109 mmol/L (98-107); Globulin 2.8 g/dL (1.3-4.6); Glomerular Filtration Rate 142.1 mL/min (90-130); Glucose 101 mg/dL (65-115); Osmolality Calculated 298 mOsm/kg (285-295); Potassium 3.7 mmol/L (3.5-5.1); Salicylate 0.8 mg/dL (3-10); Sodium 144 mmol/L (136-145); Total Bilirubin 0.3 mg/dL (0.15-1.2); Total Protein 7.4 g/dL (6.6-8.7)
[2024-05-21 16:31] LABS: Acetaminophen < 5.0 ug/mL (10-30)
[2024-05-21 17:12] LABS: HCG Qualitative Urine. Negative (Negative)
[2024-05-21 19:30] LABS: Amphetamines Screen Urine Negative (Negative); Barbiturates Screen Urine Negative (Negative); Benzodiazepines Screen Urine Positive (Negative); Cocaine Screen Urine Negative (Negative); Opiate Screen Urine Negative (Negative); PCP Screen Urine Negative (Negative); THC Screen Urine Positive (Negative)
== END 2024-05-21 19:54 | disposition home or self-care (01) ==
PROVIDERS: Emergency Provider Emergency Medicine; PCP Family Medicine
DX: F10.10 Alcohol abuse, uncomplicated (principal); Y90.6 Blood alcohol level of 120-199 mg/100 ml; F17.290 Nicotine dependence, other tobacco product, uncomplicated
CPT/HCPCS: 80053; 80306; 80307; 81025; 85025; 99283

== ENCOUNTER 2024-08-05 13:25 | Outpatient (CLI) | payer MEDICAID, SELFPAY ==
[2022-02-17 16:33] VITALS: BP 119/69; BMI 20.7
--- NOTE | 2024-08-05 13:45 | MRR_ITS ---
PROCEDURE INFORMATION: Exam: MR Left Lower Extremity Joint Without Contrast; Ankle Exam date and time: 08/05/2024 1:41 PM Age: 34 years old Clinical indication: Chronic left ankle pain on the lateral side/no injury; Additional info: Evaluate peroneal tendon TECHNIQUE: Imaging protocol: Magnetic resonance imaging of the left lower extremity without contrast. Exam focused on the ankle. COMPARISON: DX XR ankle LT min 3V* [id number] 04/27/2024 1:34 PM FINDINGS: Bones/joints: See Anterior talofibular ligament finding. LIGAMENTS: Distal tibiofibular syndesmosis: Unremarkable. No tear. Anterior talofibular ligament: There is mild thickening and increased signal within the anterior talofibular ligament suggesting a mild sprain. Posterior talofibular ligament: Unremarkable. No tear. Calcaneofibular ligament: Unremarkable. No tear. Deltoid ligament complex: Unremarkable. No tear. TENDONS: Flexor tendons of foot: Unremarkable as visualized. Tibialis posterior tendon: Unremarkable as visualized. Peroneal tendons: There is soft tissue edema adjacent to the lateral aspect of the peroneal tendons which are otherwise unremarkable. Extensor tendons of foot: Unremarkable as visualized. Tibialis anterior tendon: Unremarkable as visualized. Achilles tendon: Unremarkable as visualized. Tarsal canal (Sinus tarsi): Unremarkable. Normal signal of the fat. Tarsal tunnel: Unremarkable. Soft tissues: There is soft tissue edema along the anterior and lateral aspect of the ankle. Plantar fascia: Plantar fascia is unremarkable. MR/MR ankle LT wo con* [id number] IMPRESSION: 1. Mild anterior talofibular ligament sprain. 2. Mild soft tissue edema along the anterior and lateral aspect of the ankle, including edema adjacent to the peroneal tendons, which are otherwise unremarkable on this exam.
== END 2024-08-05 13:26 | disposition home or self-care (01) ==
PROVIDERS: PCP Family Medicine; Visit Provider Podiatrist Foot & Ankle Surgery
DX: M76.72 Peroneal tendinitis, left leg (principal); S93.492A Sprain of other ligament of left ankle, initial encounter; X58.XXXA Exposure to other specified factors, initial encounter; R93.6 Abnormal findings on diagnostic imaging of limbs
CPT/HCPCS: 73721

== ENCOUNTER 2025-06-20 15:16 | Emergency (ER) | payer BC, MEDICAID, SELFPAY ==
[2022-02-17 16:33] VITALS: BP 119/69; BMI 20.7
[2025-06-20 15:24] VITALS: BP 136/97; PULSE 87; RESP 18; TEMP 36.3; O2SAT 97; BMI 22.3
--- NOTE | 2025-06-20 15:41 | US_ITS ---
WS: [id number] Ultrasound of the left antecubital fossa, 06/20/2025 Clinical Data: LUE ac redness, edema Comparison: None. Findings: Only normal tissue could be seen in the antecubital fossa. There are no cysts or masses. There is no evidence of an abscess. US/US soft tissue/extremity [id number] Impression: Negative ultrasound of the left antecubital fossa.
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
[2025-06-20] MEDS: mupirocin oint 22 gm 1 APPLIC TOPICAL (16:14)
[2025-06-20 16:25] VITALS: BP 149/95; PULSE 86; RESP 18; TEMP 36.6; O2SAT 96
== END 2025-06-20 16:27 | disposition home or self-care (01) ==
PROVIDERS: Emergency Provider Physician Assistant; PCP Family Medicine
DX: S40.812A Abrasion of left upper arm, initial encounter (principal); F17.290 Nicotine dependence, other tobacco product, uncomplicated; X58.XXXA Exposure to other specified factors, initial encounter
CPT/HCPCS: 76882; 99284; J9999